=== PATIENT | male | born 1960 | race Caucasian/White ===

== ENCOUNTER 2017-05-03 09:30 | Day surgery (SDC) | payer OTHER ==
[2017-05-03] VITALS (17 sets, daily range): BP systolic 136–151; BP diastolic 72–96; PULSE 80–93; RESP 16–18; Ht 180.3 cm; Wt 105.8 kg
[~2017-05-03] VITALS: Ht 180.3 cm; Wt 105.8 kg
[2017-05-03 10:27] LABS: BASOPHIL # 0.1 10^3/ul (0.0-0.1); BASOPHILS % 0.9 % (0.0-2.0); EOSINOPHILS # 0.1 10^3/ul (0.0-0.5); EOSINOPHILS % 2.6 % (0.0-7.0); HEMATOCRIT 38.9 % (42.0-52.0); HEMOGLOBIN 13.7 g/dl (14.0-18.0); LYMPHOCYTES # 1.8 10^3/ul (0.8-2.9); MEAN CORPUSCULAR HEMOGLOBIN 31.4 pg (29.0-33.0); MEAN CORPUSCULAR HGB CONC 35.2 g/dl (32.0-37.0); MEAN CORPUSCULAR VOLUME 89.2 fl (82.0-101.0); MONOCYTE # 0.6 10^3/ul (0.3-0.9); MONOCYTES % 10.4 % (0.0-11.0); NEUTROPHIL # 2.9 10^3/ul (1.6-7.5); NEUTROPHILS % 53.7 % (39.0-77.0); PLATELET COUNT 228 10^3/UL (140-415); RED BLOOD COUNT 4.36 10^6/ul (4.70-6.10); RED CELL DISTRIBUTION WIDTH 12.9 % (11.5-14.5); WHITE BLOOD COUNT 5.5 10^3/ul (4.8-10.8)
[2017-05-03] MEDS ORDERED: TRAM50TA2 PO (10:30)
[2017-05-03] MEDS ORDERED: CYCL5TAB PO (10:30)
[2017-05-03 10:47] LABS: ALBUMIN/GLOBULIN RATIO 1.21; BILIRUBIN,INDIRECT 0.4 mg/dl (0-1.1); BILIRUBIN,TOTAL 0.4 mg/dl (0.2-1.3); TOTAL PROTEIN 7.3 g/dl (6.1-8.1)
[2017-05-03 10:48] LABS: CALCIUM 9.6 mg/dl (8.4-10.2); CREATININE 0.91 mg/dl (0.61-1.24); POTASSIUM 4.2 mmol/L (3.5-5.1)
--- NOTE | 2017-05-03 10:48 | RADRPT ---
PROCEDURE: XR Chest. CLINICAL INDICATION: Preop for left groin surgery. TECHNIQUE: Single AP portable chest. COMPARISON: No prior Chest x-ray FINDINGS: The cardiomediastinal silhouette is within normal limits of size. The lungs are clear without pleur al effusion or focal consolidation. No pneumothorax. The osseous structures and soft tissues are unr emarkable. IMPRESSION: 1. No evidence for active cardiopulmonary disease. RPTAT:AAJJ Physician Brian Date Time Electronically viewed and signed by Physician Brian on 05/03/2017 10:48 JEANNE/
[2017-05-03] MEDS ORDERED: CEFAZOLIN 2 GM/50 ML (PMX) 50 ML IVPB ONE (11:00)
[2017-05-03] MEDS ORDERED: SOD CHLORIDE 0.9% 1,000 ML IV SCH (11:00)
[2017-05-03 11:02] LABS: INR 0.96; PROTIME 12.9 Sec (11.9-14.9)
[2017-05-03 11:03] LABS: PARTIAL THROMBOPLASTIN TIME 29.9 Sec (25.0-35.0)
[2017-05-03] MEDS ORDERED: FENTAnyl 50 MCG/ML VIAL ONE (12:38)
[2017-05-03] MEDS ORDERED: SUCCINYLCHOLINE CHLORIDE 100 MG/5 ML SYG IV ONE ×2 (12:39→12:57)
[2017-05-03] MEDS ORDERED: PROPOFOL 20 ML ONE (12:57)
[2017-05-03] MEDS ORDERED: SUGAMMADEX SODIUM 200 MG/2 ML VIAL IV ONE (12:57)
[2017-05-03] MEDS ORDERED: ROCURONIUM 50 MG INJ ONE (12:57)
[2017-05-03] MEDS ORDERED: LIDOCAINE 1%/EPI (1:100,000) (MDV) 20 ML ONE (12:57)
[2017-05-03] MEDS ORDERED: BUPIVACAINE 0.25%/EPI (SDV) 30 ML INJ ONE (13:09)
--- NOTE | 2017-05-03 13:41 | SIPON ---
Date/Time of Note Date/Time of Note DATE: 05/03/17 TIME: 13:39 Operative Report Preoperative Diagnosis Severe left groin pain Postoperative Diagnosis Same Operation/Procedure Performed Left groin exploration and nerve release Surgeon see signature line assistant community director None Anesthesia: general Estimated blood loss: 10 - 50 ml's Transfusion Required none Specimen Left groin tissue rule out scar versus entrapped nerve Grafts/Implants none Complications none MARGOTH DOMINGUEZ MD May 03, 2017 13:41
[2017-05-03] MEDS ORDERED: ONDANSETRON 4 MG INJ IV STA (14:03)
[2017-05-03] MEDS ORDERED: HYDROmorphONE 0.5 MG/0.5 ML SYG IV STA (14:03)
[2017-05-03] MEDS ORDERED: HYDROmorphONE (0.2 MG/ML) 10ML SYG IV ONE (14:09)
--- NOTE | 2017-05-03 14:46 | OPR ---
DATE OF OPERATION: 05/03/2017 PREOPERATIVE DIAGNOSIS: Chronic left groin pain. PREOPERATIVE DIAGNOSIS: Chronic left groin pain. POSTOPERATIVE DIAGNOSIS: Chronic left groin pain. OPERATION PERFORMED: Left groin exploration and nerve release. ANESTHESIA: General. ANESTHESIOLOGIST: Dr. Mccoy SURGEON: Raoul Murray MD INFORMATION TECHNOLOGY TECHNICIAN: None. INDICATIONS FOR PROCEDURE: The patient is a 57-year-old male who has had 2 previous surgeries on hi s left groin. By patient report he had a hernia repair several years ago and then states he had a s econd operation, but he was not clear as to the details of what was performed. Since that time, he has had debilitating left groin pain. Physical exam did not reveal evidence of a recurrent hernia. A CAT scan was performed to further elucidate the etiology of pain and no definite etiology could be ascertained. Therefore, I discussed with the patient the possible benefit of release of the ilioin guinal and iliohypogastric nerves. He strongly wished to proceed and he consented and was scheduled for surgery. DESCRIPTION OF PROCEDURE: Patient was brought to the operating theater, placed under general anesth esia. The left groin was shaved, prepped and draped in usual sterile fashion. Previous surgical in cisional scar was reincised with 15 blade scalpel. Subcutaneous tissue was dissected until the apon eurosis of the external oblique was clearly visualized. There was significant scar tissue anterior to the aponeurosis, consistent with previous surgery. The aponeurosis was incised in direction of t he fibers through the external ring. Upon entering the inguinal canal, there was an excessive amoun t of scar tissue. With blunt dissection, medial and lateral flaps of the aponeurosis were developed . The region where the expected location of the ilioinguinal and iliohypogastric nerves were locate d superiorly, contained significant thickened scar tissue. It was difficult to truly identify if th is was nerve tissue, but due to the fact that the scar tissue was in the location of the expected si te of the nerves, Dr. Murray proceeded with resecting the scar tissue, taking great care to ensure th at it was not vascular in nature. A portion of this tissue was removed and sent for pathologic anal ysis. Additional ablation occurred in this area using cautery. The wound was then irrigated. Mini mal bleeding was controlled with cautery. A local anesthetic consisting of 0.25% Marcaine with epin ephrine was injected just superior to the internal ring. The aponeurosis of the external oblique wa s then reapproximated with a running 4-0 Vicryl suture, and the skin was reapproximated with skin st aples. The patient tolerated procedure well. The estimated blood loss was approximately 10 mL. Th ere were no complications and the patient was transported in stable condition to the recovery room. Dictated By: RAOUL DUONG/REGINE Conf#: [id number] DID#: [id number]
--- NOTE | 2017-05-03 20:35 | RADRPT ---
Vent Rate: 81 bpm RR Interval: 0 msec [place] Interval: 174 msec QRS Duration: 100 msec QT Interval: 362 msec QTC Interval: 420 msec P-R-T [place]: 43 - 0 - 50 degrees Normal sinus rhythm Right superior axis deviation Pulmonary disease pattern Abnormal ECG Electronically Signed By: Jadiel Bhagat [id number]
== END 2017-05-03 15:50 | disposition home or self-care (01) ==
LOC: SDS 09:30
PROVIDERS: ATTEND Surgery Surgical Oncology
DX: L90.5 Scar conditions and fibrosis of skin (principal); R10.32 Left lower quadrant pain; E66.9 Obesity, unspecified; Z68.32 Body mass index [BMI] 32.0-32.9, adult
CPT/HCPCS: 64708; 71010; 80053; 85025; 85610; 85730; 88305; 93005; J1170; J3010; Z7512; Z7610

== ENCOUNTER 2017-12-03 11:29 | Day surgery (SDC) | END 2017-12-03 20:32 | disposition home or self-care (01) ==